=== PATIENT | female | born 1985 | race Caucasian/White ===

== ENCOUNTER 2016-08-09 20:35 | Emergency (ER) | payer SELFPAY ==
[~2016-08-09 20:35] MED LIST: COLACE100 M1 PO; DICLOFENAC POTA50 M1 PO; DICLOFENAC SODI50 M1 PO; FLECAINIDE ACET50 M1 PO; FLOMAX0.4 M1 PO; MACROBID 100 M100 M1 PO; NO MEDS; NORCO 5-325 TA1 EACH PO; NORCO 5/325 TAB1 TAB PO; PERCOCET 5-3251 EACH PO
[2016-08-09] MEDS ORDERED: MULTI FOR HER1 EAC1 PO (20:57)
[2016-08-09] MEDS ORDERED: IBUPROFEN600 M1 PO (21:22)
[2016-08-09] MEDS ORDERED: NORCO 5/3251 TAB PO (21:22)
[2016-08-09] MEDS ORDERED: CYCLOBENZAPRINE5 M1 PO (21:22)
== END 2016-08-09 21:33 ==
LOC: EDMED 20:35
DX: M54.42 Lumbago with sciatica, left side (principal); I48.91 Unspecified atrial fibrillation; F17.200 Nicotine dependence, unspecified, uncomplicated; Z90.49 Acquired absence of other specified parts of digestive tract
CPT/HCPCS: J1170; J1885